=== PATIENT | male | born 1975 | race Caucasian/White ===

== ENCOUNTER 2019-03-25 12:37 | Emergency (ER) | payer OTHER | END 2019-03-25 14:10 | disposition home or self-care (01) | LOC: FTE 12:37 | DX: S61.208A Unspecified open wound of other finger without damage to nail, initial encounter (principal); W49.04XA Ring or other jewelry causing external constriction, initial encounter; Y92.9 Unspecified place or not applicable | CPT/HCPCS: 99282; Z7502 ==